=== PATIENT | male | born 1935 | race Caucasian/White ===

== ENCOUNTER 2017-02-21 07:59 | Day surgery (SDC) | payer OTHER ==
[2017-02-21 08:59] VITALS: BMI 38.7
[2017-02-21] MEDS ORDERED: Glucagon Recombinant 1 mg Inj ONE (10:47)
[2017-02-21] MEDS ORDERED: Propofol 10 mg/ml Inj (20 ML) ONE ×3 (11:14→11:15)
[2017-02-21 11:38] VITALS: TEMP 97.9
[2017-02-21 12:01] VITALS: RESP 12
[2017-02-21 12:14] VITALS: BP 150/68; PULSE 74; O2SAT 99
== END 2017-02-21 12:05 | disposition home or self-care (01) ==
LOC: C.ENDO 07:59
PROVIDERS: ATTEND Internal Medicine
DX: D12.3 Benign neoplasm of transverse colon (principal); K59.09 Other constipation; K59.00 Constipation, unspecified; D12.4 Benign neoplasm of descending colon; K64.8 Other hemorrhoids; K57.90 Diverticulosis of intestine, part unspecified, without perforation or abscess without bleeding
CPT/HCPCS: 45385; 82948; 88305; J1610; J2704